=== PATIENT | female | born 2000 | race Caucasian/White ===

== ENCOUNTER 2019-07-06 11:43 | Emergency (ER) | payer MEDICAID ==
[~2019-07-06] VITALS: Ht 162.6 cm; Wt 55.0 kg
[2019-07-06] MEDS ORDERED: METOCLOPRAMIDE HCL 10MG/2ML VIAL IV STA (12:25)
[2019-07-06] MEDS ORDERED: SODIUM CHLORIDE 0.9% 1,000 ML IV ONE ×2 (12:25→14:15)
[2019-07-06 13:07] LABS: HEMATOCRIT. 45.3 % (36.0-48.0); HEMOGLOBIN. 15.9 g/dL (12.0-16.0); MEAN CORPUSCULAR HEMOGLOBIN 32.3 pg (28.0-32.0); MEAN PLATELET VOLUME 9.2 fl (7.4-10.4); PLATELET 219 x1000/uL (130-400); RED BLOOD CELL COUNT 4.92 mill/uL (4.2-5.4); RED CELL DISTRIBUTION WIDTH 13.9 % (11.6-14.6)
[2019-07-06 13:43] LABS: PLATELET ESTIMATE NORMAL
[2019-07-06 14:01] LABS: CLARITY URINE TURBID (CLEAR); COLOR URINE DARK YELLOW (YELLOW); KETONES URINE 4+ (NEGATIVE); LEUKOCYTE ESTERASE URINE 3+ (NEGATIVE); NITRITE URINE POSITIVE (NEGATIVE); OCCULT BLOOD URINE 2+ (NEGATIVE); PH URINE 5.5 (4.5-8.0); PROTEIN URINE 2+ (NEGATIVE)
[2019-07-06] MEDS ORDERED: CEFTRIAXONE 1 G PREMIX 50 ML IV ONE (14:15)
[2019-07-06] MEDS ORDERED: AMOXICILLIN/POTASSIUM CLAVULANATE 875/125MG TAB PO ONE (14:15)
[2019-07-06 14:18] LABS: CHLORIDE 107 mEq/L (98-107)
[2019-07-06 14:31] LABS: B-HCG QUANTITATIVE < 1 mIU/mL (<3)
[2019-07-06] MEDS ORDERED: POTASSIUM CHLORIDE 20MEQ TABLET SR PO ONE (15:30)
[2019-07-06 15:45] VITALS: BP 123/68
== END 2019-07-06 16:49 | disposition home or self-care (01) ==
LOC: ER 11:43
DX: N39.0 Urinary tract infection, site not specified (principal)
CPT/HCPCS: 36415; 80053; 81003; 81025; 83690; 84702; 85025; 87077; 87086; 87186; 96361; 96374; 99283; J2765; J7030

== ENCOUNTER 2019-07-10 07:07 | Emergency (ER) | payer MEDICAID ==
[~2019-07-10] VITALS: Ht 162.6 cm; Wt 61.0 kg
[2019-07-10] MEDS ORDERED: SODIUM CHLORIDE 0.9% 1,000 ML IV ONE ×2 (07:41→09:21)
[2019-07-10] MEDS ORDERED: METOCLOPRAMIDE HCL 10MG/2ML VIAL IV ONE (07:45)
[2019-07-10 08:03] LABS: BASOPHILS % 0.6 % (0.0-2.0); EOSINOPHILS % 0.1 % (0.0-5.0); HEMATOCRIT. 46.6 % (36.0-48.0); HEMOGLOBIN. 16.2 g/dL (12.0-16.0); MEAN CORPUSCULAR HEMOGLOBIN 31.6 pg (28.0-32.0); MEAN CORPUSCULAR VOLUME 90.9 fL (81.0-99.0); MEAN PLATELET VOLUME 8.4 fl (7.4-10.4); MONOCYTES % 4.2 % (2.0-8.0); NEUTROPHILS % 80.1 % (40.0-76.0); PLATELET 326 x1000/uL (130-400); RED BLOOD CELL COUNT 5.13 mill/uL (4.2-5.4); RED CELL DISTRIBUTION WIDTH 13.4 % (11.6-14.6)
[2019-07-10 08:10] LABS: CHLORIDE 99 mEq/L (98-107)
[2019-07-10 08:15] LABS: ETHANOL BLOOD < 10 mg/dL
[2019-07-10 08:38] LABS: CLARITY URINE CLEAR (CLEAR); COLOR URINE YELLOW (YELLOW); KETONES URINE 4+ (NEGATIVE); LEUKOCYTE ESTERASE URINE TRACE (NEGATIVE); NITRITE URINE NEGATIVE (NEGATIVE); OCCULT BLOOD URINE 2+ (NEGATIVE); PROTEIN URINE TRACE (NEGATIVE); SPECIFIC GRAVITY URINE 1.026 (1.005-1.030)
[2019-07-10] MEDS ORDERED: POTASSIUM CHLORIDE 20MEQ TABLET SR PO SCH (08:45)
[2019-07-10 08:55] LABS: *AMPHETAMINES SCREEN URINE NEGATIVE (NEGATIVE); *BARBITURATES SCREEN URINE NEGATIVE (NEGATIVE); *BENZODIAZEPINES SCREEN URINE NEGATIVE (NEGATIVE); *COCAINE SCREEN URINE NEGATIVE (NEGATIVE); METHADONE URINE SCREEN NEGATIVE (NEGATIVE); OPIATES URINE SCREEN NEGATIVE (NEGATIVE)
[2019-07-10 08:56] LABS: PHENCYCLIDINE URINE SCREEN NEGATIVE (NEGATIVE)
[2019-07-10 08:57] LABS: CANNABINOID URINE SCREEN PRESUMTIVE POSITIVE (NEGATIVE)
[2019-07-10 09:12] LABS: HCG SCREEN NEGATIVE
[2019-07-10] MEDS ORDERED: SODIUM CHLORIDE 0.9% 1,000 ML IV SCH (09:30)
[2019-07-10] MEDS ORDERED: GENTAMICIN 100MG PREMIX 100 ML IV ONE (09:30)
[2019-07-10] MEDS ORDERED: GENTAMICIN 100MG PREMIX 50 ML IV NR (10:15)
[2019-07-10] MEDS ORDERED: MAGNESIUM/ALUMINUM HYDROXIDE/SIMETHICONE 30ML UDC PO ONE (11:00)
[2019-07-10] MEDS ORDERED: DIPHENHYDRAMINE 50MG/ML VIAL IV ONE (11:00)
[2019-07-10 11:06] VITALS: BP 132/78
== END 2019-07-10 11:07 | disposition home or self-care (01) ==
LOC: ER 07:07
DX: R11.2 Nausea with vomiting, unspecified (principal)
CPT/HCPCS: 36415; 74176; 80053; 80305; 80320; 81003; 81025; 83690; 84703; 85025; 96361; 96365; 96375; 99285; J1580; J2765; J7030; G0480

== ENCOUNTER 2019-10-28 09:41 | Emergency (ER) | payer SELFPAY ==
[~2019-10-28] VITALS: Ht 162.6 cm; Wt 65.0 kg
[2019-10-28] MEDS ORDERED: MAGNESIUM/ALUMINUM HYDROXIDE/SIMETHICONE 30ML UDC PO STA (10:08)
[2019-10-28] MEDS ORDERED: FAMOTIDINE 20MG/2ML VIAL IV STA (10:08)
[2019-10-28] MEDS ORDERED: SODIUM CHLORIDE 0.9% 1,000 ML IV ONE (10:08)
[2019-10-28] MEDS ORDERED: METOCLOPRAMIDE HCL 10MG/2ML VIAL IV STA (10:08)
[2019-10-28 10:59] LABS: HEMATOCRIT. 45.3 % (36.0-48.0); HEMOGLOBIN. 15.5 g/dL (12.0-16.0); MEAN CORPUSCULAR HEMOGLOBIN 31.6 pg (28.0-32.0); MEAN CORPUSCULAR VOLUME 92.5 fL (81.0-99.0); MEAN PLATELET VOLUME 8.8 fl (7.4-10.4); PLATELET 201 x1000/uL (130-400); RED BLOOD CELL COUNT 4.89 mill/uL (4.2-5.4); RED CELL DISTRIBUTION WIDTH 13.2 % (11.6-14.6)
[2019-10-28 11:03] LABS: CHLORIDE 90 mEq/L (98-107)
[2019-10-28 11:07] LABS: INR 1.2; PROTHROMBIN TIME 12.5 sec (9.6-11.0)
[2019-10-28 11:13] LABS: HCG SCREEN POSITIVE
[2019-10-28 11:29] LABS: PLATELET ESTIMATE NORMAL
[2019-10-28] MEDS ORDERED: POTASSIUM CHLORIDE 20MEQ TABLET SR PO NR (11:30)
[2019-10-28] MEDS ORDERED: KCL 20MEQ/100ML PREMIX 100 ML IV NR (11:30)
[2019-10-28] MEDS ORDERED: MAGNESIUM 2 G PREMIX 50 ML IV NR (11:30)
[2019-10-28 14:00] VITALS: BP 118/60
[2019-10-28 14:22] LABS: CLARITY URINE TURBID (CLEAR); COLOR URINE YELLOW (YELLOW); KETONES URINE TRACE (NEGATIVE); LEUKOCYTE ESTERASE URINE 2+ (NEGATIVE); NITRITE URINE POSITIVE (NEGATIVE); OCCULT BLOOD URINE 1+ (NEGATIVE); PH URINE 5.5 (4.5-8.0); PROTEIN URINE 2+ (NEGATIVE); UROBILINOGEN URINE 0.2 E.U./dL (0.2-1.0)
== END 2019-10-28 15:10 | disposition home or self-care (01) ==
LOC: ER 09:54 → CANBEDREQ 17:15
DX: E87.1 Hypo-osmolality and hyponatremia (principal); E87.6 Hypokalemia; F12.90 Cannabis use, unspecified, uncomplicated
CPT/HCPCS: 36415; 71045; 76705; 76801; 76817; 80053; 81003; 81025; 82248; 83690; 84702; 84703; 85025; 85610; 87077; 87086; 87186; 96361; 96365; 96375; 99285; J2765; J3475; J3480; J3490; J7030